=== PATIENT | male | born 1975 | race Caucasian/White ===

== ENCOUNTER 2016-07-27 13:12 | Emergency (ER) | payer OTHER ==
[2016-07-27 13:33] VITALS: BP 136/91
--- NOTE | 2016-07-27 14:43 | EDM.PDOC ---
ED HPI GENERAL MEDICAL PROBLEM - General Chief Complaint: Headache Stated Complaint: LEFT SIDE TINLY/KNUMB Time Seen by Provider: 07/27/16 14:20 Source of Information: Reports: Patient, Family History Limitations: Reports: No Limitations - History of Present Illness Onset: Today, Gradual Location: Reports: Head Quality: Reports: Same as Previous Episode, Sharp, Other (migraine headache) Severity: Severe Improves with: Reports: None Worsens with: Reports: None Associated Symptoms: Reports: Other (transient tingling sensation on left side of face and left hand lasted about 10 minutes without other symptoms than migraine headache) Treatments LOG SKIDDER: Reports: NSAIDS Other Treatments LOG SKIDDER: 600mg Headache Pain Score (Numeric/FACES): 7 - Related Data Allergies Allergy/AdvReac Type Severity Reaction Status Date / Time No Known Allergies Allergy Verified 07/27/16 13:18 Home Meds: Home Meds . [No Known Home Meds] 07/27/16 [History] Past Medical History Neurological History: Reports: Migraines Social & Family History - Family History Family Medical History: Noncontributory - Tobacco Use Smoking Status *Q: Never Smoker Second Hand Smoke Exposure: No - Caffeine Use Caffeine Use: Reports: Soda - Recreational Drug Use Recreational Drug Use: No ED ROS GENERAL - Review of Systems Review Of Systems: See Below Constitutional: Reports: No Symptoms HEENT: Reports: No Symptoms Respiratory: Reports: No Symptoms Cardiovascular: Reports: No Symptoms GI/Abdominal: Reports: No Symptoms Musculoskeletal: Reports: No Symptoms Skin: Reports: No Symptoms Neurological: Reports: Headache, Paresthesia. Denies: Tremors, Trouble Speaking , Gait Disturbance Psychiatric: Reports: No Symptoms Hematologic/Lymphatic: Reports: No Symptoms Immunologic: Reports: No Symptoms - Physical Exam Exam: See Below Exam Limited By: No Limitations General Appearance: Alert Eye Exam: Bilateral Eye: EOMI, Normal Inspection, PERRL Throat/Mouth: Normal Inspection, Normal Lips, Normal Teeth, Normal Gums, Normal Oropharynx, Normal Voice, No Airway Compromise Head Exam: Atraumatic, Normocephalic Neck: Normal Inspection, Supple, Non-Tender, Full Range of Motion Respiratory/Chest: No Respiratory Distress, Lungs Clear, Normal Breath Sounds, No Accessory Muscle Use, Chest Non-Tender Neuro Exam (Abbreviated): Alert, Oriented, CN II-XII Intact, Normal Cognition, Normal Gait, Normal Reflexes, No Motor/Sensory Deficits DTR: 2+: Bicep (R), Bicep (L), Tricep (R), Tricep (L), Patella (R), Patella (L) , Achilles (R), Achilles (L) Back Exam: Normal Inspection, Full Range of Motion, NT Course - Vital Signs Last Recorded V/S: Last Vital Signs Temp 97.6 F 07/27/16 13:30 Pulse 59 L 07/27/16 13:30 Resp 16 07/27/16 13:30 BP 136/91 H 07/27/16 13:30 Pulse Ox 100 07/27/16 13:30 - Orders/Labs/Meds Meds: Medications Discontinued Medications Generic Name Dose Route Start Last Admin Trade Name Freq PRN Reason Stop Dose Admin Sumatriptan Succinate 6 mg 07/27/16 14:44 07/27/16 14:48 Imitrex SUBCUT 07/27/16 14:45 6 mg ONETIME ONE Administration Departure - Departure Time of Disposition: 15:18 Disposition: Home, Self-Care 01 Condition: good Clinical Impression: Migraine - Discharge Information Instructions: Recurrent Migraine Headache, [id number] Forms: ED Department Discharge Additional Instructions: Rx Imitrex 25 mg Take 1-2 tab po prn migraine. May repeat in one hour and use only once per day dispence 12 tablets See your doctor next week Return if worse.
[2016-07-27] MEDS ORDERED: SUMAtriptan 6 MG/0.5 ML SDV SUBCUT ONE (14:44)
== END 2016-07-27 15:32 | disposition home or self-care (01) ==
LOC: DL.ED 13:12
DX: G43.909 Migraine, unspecified, not intractable, without status migrainosus (principal)
CPT/HCPCS: 96372; 99282; J3030

== ENCOUNTER 2021-12-03 10:15 | Emergency (ER) | payer OTHER ==
[2021-12-03 10:53] VITALS: BP 125/83; PULSE 79
[2021-12-03 11:42] LABS: CORONAVIRUS COVID-19 NAA NEGATIVE (NEGATIVE)
[2021-12-03] MEDS ORDERED: HYDROmorphone 1 MG/ML Syringe IVPUSH ONE (12:50)
[2021-12-03] MEDS ORDERED: Ondansetron 4 MG/2 ML SDV IVPUSH ONE (12:50)
[2021-12-03 13:28] LABS: ANION GAP 15.2 mEq/L (7-13); CHLORIDE,CL 98 mmol/L (98-107); ESTIMATED GFR 92 mL/min (>=60); SODIUM,NA 140 mmol/L (136-145)
[2021-12-03] MEDS ORDERED: Sodium Chloride 0.9% 1,000 ML IV ONE (13:31)
[2021-12-03] MEDS ORDERED: Iopamidol 612 MG/ML 100 ML Bottle IVPUSH ONE (14:07)
[2021-12-03 15:28] LABS: AMPHETAMINES,URINE NEGATIVE (NEGATIVE); BARBITURATES,URINE NEGATIVE (NEGATIVE); BENZODIAZEPINE,URINE NEGATIVE (NEGATIVE); MDMA (ECSTASY), URINE NEGATIVE (NEGATIVE); METHADONE,URINE NEGATIVE (NEGATIVE); METHAMPHETAMINES,URINE NEGATIVE (NEGATIVE); OPIATES,URINE POSITIVE (NEGATIVE); OXYCODONE,URINE NEGATIVE (NEGATIVE); PHENCYCLIDINE,URINE NEGATIVE (NEGATIVE); TCA,URINE NEGATIVE (NEGATIVE)
== END 2021-12-03 15:45 ==
LOC: DL.ED 10:15
DX: K56.50 Intestinal adhesions [bands], unspecified as to partial versus complete obstruction (principal); Z20.822 Contact with and (suspected) exposure to COVID-19
CPT/HCPCS: 0240U; 36415; 74177; 80053; 80305; 80307; 81001; 82150; 83605; 83690; 83735; 84145; 85025; 86140; 96361; 96374; 96375; 99284; J1170; J2405; J7030; Q9967